=== PATIENT | female | born 1955 | race Caucasian/White ===

== ENCOUNTER → 2018-07-30 | Outpatient (CLI) | payer BC ==
[~2018-07-30] MED LIST: ASPI81TA94 PO; CHOL10005 PO; FLU60SYR36 IM; GLUC-139 PO; HYDR12.561 PO; LISI-362 PO; MELA1TAB23 PO; PEG4000S17 PO; TIZA4CAP3 PO; VENL150T10 PO
--- NOTE | 2018-08-02 10:18 | RADIOLOGY IMAGING REPORT ---
FACILITY: [facility] PATIENT NAME: PATRICIA SAN : [id number] MR: [id number] V: [id number] EXAM DATE: ORDERING PHYSICIAN: ESTEBAN GALEAS TECHNOLOGIST: [place] PROCEDURE: MAMMOGRAM SCREENING RIGHT UNILATERAL WITH CAD ASSISTED INTERPRETATION & 3D TOMOSYNTHESIS COMPARISON: Prior mammograms 04/09/17, 10/24/15, 10/18/14, 09/29/13, 04/14/12. INDICATIONS: SCREENING PRIOR LEFT BREAST CANCER WITH MASTECTOMY IN 2004 FINDINGS: The Right breast is heterogeneously dense which can obscure small masses. The parenchymal pattern has remained stable allowing for difference in mammographic technique & patient positioning. DIAGNOSTIC CATEGORY 1--NEGATIVE. RECOMMENDATIONS: ROUTINE MAMMOGRAM AND CLINICAL EVALUATION. IMPRESSION: BIRADS 1: Negative. No significant abnormality of the Right breast is seen. Dictated by: Radah Gutierrez M.D. on 07/30/2018 at 11:49 Transcribed by: BEVERLY on 07/30/2018 at 13:19 Approved by: Radha Gutierrez M.D. on 08/02/2018 at 10:17 [facility]
== END ==
LOC: MAMO 00:47
PROVIDERS: ATTEND Obstetrics & Gynecology
DX: Z13.31 Encounter for screening for depression (principal)
CPT/HCPCS: 77063; 77067